=== PATIENT | female | born 1965 | race Caucasian/White ===

== ENCOUNTER 2017-10-04 22:02 | Emergency (ER) | payer MEDICARE, SELFPAY ==
[2017-10-04 22:03] VITALS: BP 120/74; PULSE 99; RESP 18; TEMP 37.2; O2SAT 97; BMI 27.1
--- NOTE | 2017-10-04 22:34 | ED.VISSUMM ---
- ER Visit Summary Date of Service: 10/04/17 Chief Complaint: Sore throat and bilateral earache History of Present Illness: The patient is a 52 F this morning started with sore throat and bilateral earache. Subjective fever. She denies cough. She denies nausea, vomiting or diarrhea. She states she has had this yearly last several years and believes she may have strep throat. She is able to swallow but finds it uncomfortable. No trouble breathing. Physical Examination: Middle-aged female no acute distress vital signs are stable afebrile. She does not look septic or toxic. Posterior pharynx is erythematous swollen. Both the tonsils and posterior pharynx. There is exudate on the right. No peritonsillar abscess. Uvula midline. Moist mucous membranes. No drooling. TMs are erythematous and dull. There is no perforation. Canals are unremarkable. Neck has mild tenderness but no lymphadenopathy. Trachea is midline and nontender. Lungs clear to auscultation. Heart regular rate and rhythm no murmur. Abdomen soft nontender. She is moving all 4 extremities. She is neurovascularly intact. Neurologically she is awake and alert with no focal motor deficits. Patient was given a glass of water and she could swallow it easily. No choking. And no drooling. Test Results: None Emergency Department Course and Treatment: History and exam are consistent with strep tonsillitis. Treatment Plan: Patient be started on amoxicillin 3 times daily for 10 days. Given first dose in the ER. Warm salt water gargling. Tylenol and Motrin for pain. Disposition: Discharge Impression: Acute strep tonsillitis This note was generated with [employer] dictation software. It may contain incorrect words, spelling, and punctuation that were not noted in review of the chart prior to signing ED Disposition - Plan for ED Patient: Chief Complaint: Sore Throat Referrals: NOT,DEFINED [Primary Care Provider] -
--- NOTE | 2017-10-04 22:37 | ED.DEP ---
ED Disposition - Plan for ED Patient: Disposition: Home or Assisted Living Chief Complaint: Sore Throat Instructions: Strep Throat Prescriptions: Amoxicillin 500 mg PO TID #30 tab Referrals: Kenny Arce MD [STAFF PHYSICIAN] - 1 Week if not improving Additional Instructions: Warm salt water gargling. Tylenol Motrin for pain. Amoxicillin 1 pill 3 times a day till gone. Return if feeling worse or unable to swallow.
[2017-10-04] MEDS: AMOXICILLIN 500 MG CAPSULE PO (22:52)
== END 2017-10-04 22:57 | disposition home or self-care (01) ==
PROVIDERS: Emergency Provider Emergency Medicine
DX: J03.00 Acute streptococcal tonsillitis, unspecified (principal); Z85.42 Personal history of malignant neoplasm of other parts of uterus; Z90.710 Acquired absence of both cervix and uterus; Z72.0 Tobacco use
CPT/HCPCS: 99283